=== PATIENT | male | born 1975 | race African-American/Black ===

== ENCOUNTER 2017-09-16 07:14 | Emergency (ER) | payer OTHER ==
[2017-09-16] MEDS ORDERED: NS 0.9% 1000 ML* 1,000 ML IV ONE (07:33)
[2017-09-16] MEDS ORDERED: Aspirin 81 mg CHEW TAB* 81 MG TAB.CHEW PO ONE (07:33)
[2017-09-16] MEDS ORDERED: Albuterol/Ipratropium NEB.SOL* Albuterol 2.5 MG/Ipratropium 0.5 MG 3 ML INH ONE (07:33)
[2017-09-16 08:18] LABS: ABS Basophils 0 10^3/ul (0-0.2); ABS Eosinophils 0.1 10^3/ul (0-0.6); ABS Lymphocytes 2.1 10^3/ul (1.0-4.8); ABS Monocytes 0.7 10^3/ul (0-0.8); ABS Neutrophils 6.9 10^3/ul (1.5-7.7); ABS Nucleated RBC 0 10^3/ul; Eosinophil % 1.1 % (0-6); Hematocrit 46 % (42-52); Hemoglobin 15.9 g/dl (14.0-18.0); Lymphocyte % 21.7 % (25-47); Mean Corpuscular HGB Conc 34 g/dl (31-36); Mean Corpuscular Hemoglobin 31 pg (27-31); Mean Corpuscular Volume 89 fL (80-94); Mean Platelet Volume 8.6 um3 (7.4-10.4); Nucleated Red Blood Cells % 0.1; Platelet Count 184 10^3/ul (150-450); Red Blood Count 5.18 10^6/ul (4.0-5.4); Red Cell Distribution Width 14 % (10.5-15); White Blood Count 9.9 10^3/ul (3.5-10.8)
[2017-09-16 08:25] LABS: INR 0.85 (0.77-1.02)
--- NOTE | 2017-09-16 08:42 | RAD ---
INDICATION: Shortness of breath. COMPARISON: Most recent comparison chest x-ray December 19, 2013 TECHNIQUE: Single AP portable view of the chest was obtained. FINDINGS: Image quality is compromised due to the relative inferiority of a portable chest x-ray. The heart and mediastinum exhibit normal size and contour. The lungs are grossly clear. There is no evidence of a large pleural effusion. Visualized bones are normal for the patient's age. IMPRESSION: No radiographic evidence for acute cardiopulmonary abnormality on this portable chest x-ray.
[2017-09-16] MEDS ORDERED: Potassium Chlor TAB* 20 MEQ TAB.ER PO ONE (09:44)
[2017-09-16 11:52] VITALS: BP 0/0
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
== END 2017-09-16 11:49 | disposition left against medical advice (07) ==
LOC: ED 07:14
DX: R06.00 Dyspnea, unspecified (principal); E87.6 Hypokalemia; J98.01 Acute bronchospasm; F17.210 Nicotine dependence, cigarettes, uncomplicated; Z53.21 Procedure and treatment not carried out due to patient leaving prior to being seen by health care provider; Z87.820 Personal history of traumatic brain injury
CPT/HCPCS: 36415; 71045; 80053; 82550; 82553; 83605; 83735; 83880; 84484; 85025; 85379; 85610; 93005; 96360; 99283; A9270-GY

== ENCOUNTER 2019-01-31 21:15 | Emergency (ER) | payer OTHER ==
[2019-01-31] MEDS ORDERED: Sulfamethox/Trimethoprim DS 800/160* TAB PO ONE (21:55)
[2019-01-31] MEDS ORDERED: Ibuprofen TAB* 600 MG PO ONE (21:55)
[2019-01-31] MEDS ORDERED: Cephalexin CAP* 500 MG PO ONE (21:55)
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
[2019-01-31 22:19] VITALS: BP 131/93
== END 2019-01-31 22:15 | disposition home or self-care (01) ==
LOC: ED 21:15
DX: L03.211 Cellulitis of face (principal); Z86.14 Personal history of Methicillin resistant Staphylococcus aureus infection; F17.210 Nicotine dependence, cigarettes, uncomplicated
CPT/HCPCS: 99282; A9270-GY

== ENCOUNTER 2019-02-01 22:12 | Emergency (ER) | payer OTHER ==
[2019-02-01 22:18] VITALS: BP 136/85
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
[2019-02-01] MEDS ORDERED: Ibuprofen TAB* 800 MG PO ONE (23:03)
== END 2019-02-01 23:20 | disposition home or self-care (01) ==
LOC: ED 22:12
DX: L03.211 Cellulitis of face (principal); F17.210 Nicotine dependence, cigarettes, uncomplicated
CPT/HCPCS: 99282; A9270-GY

== ENCOUNTER 2019-06-27 16:04 | Emergency (ER) | payer OTHER ==
[2019-06-27 16:15] VITALS: BP 121/73
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
[2019-06-27] MEDS ORDERED: Tetanus-Diptheria Toxoids* 0.5 ML SYRINGE IM ONE (16:34)
[2019-06-27] MEDS ORDERED: Tetan/Diph/Pertus SYR(Tdap)* 0.5 ML SYR(BOOSTRIX) use SYR contains LATEX IM ONE (16:40)
== END 2019-06-27 16:54 | disposition home or self-care (01) ==
LOC: UCEAST 16:04
DX: S41.011A Laceration without foreign body of right shoulder, initial encounter (principal); L08.9 Local infection of the skin and subcutaneous tissue, unspecified; W26.8XXA Contact with other sharp object(s), not elsewhere classified, initial encounter; Y93.89 Activity, other specified; Y92.9 Unspecified place or not applicable; Z23 Encounter for immunization; Z86.14 Personal history of Methicillin resistant Staphylococcus aureus infection; F17.210 Nicotine dependence, cigarettes, uncomplicated
CPT/HCPCS: 90471; 90715; 99212; G0463